=== PATIENT | female | born 2000 | race Caucasian/White ===

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

== ENCOUNTER 2022-11-09 14:49 | Emergency (ER) | payer OTHER ==
[~2022-11-09] VITALS: Ht 160 cm; Wt 61.2 kg
[2022-11-09 15:29] VITALS: BP 138/97
== END 2022-11-09 16:23 | disposition home or self-care (01) ==
LOC: ER 14:49
DX: S93.401A Sprain of unspecified ligament of right ankle, initial encounter (principal); X50.1XXA Overexertion from prolonged static or awkward postures, initial encounter; Y93.73 Activity, racquet and hand sports
CPT/HCPCS: 73610